=== PATIENT | female | born 1995 | race Hispanic/Latino ===

== ENCOUNTER 2016-12-12 18:54 | Emergency (ER) | payer OTHER, BC ==
[2016-12-12 19:05] VITALS: BP 141/73; PULSE 92; RESP 16; TEMP 98; O2SAT 100
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
--- NOTE | 2016-12-13 10:43 | RAD ---
PROCEDURE: Cervical Spine Radiographs. HISTORY: Pain. COMPARISON: None. FINDINGS: BONES: Alignment maintained. No fracture. Nondiagnostic assessment of C1-C2 relationship. DISC SPACES: Normal. SOFT TISSUES: Normal. No prevertebral soft tissue swelling. OTHER FINDINGS: None. IMPRESSION: No acute findings related to/accounting for the clinical presentation.
== END 2016-12-12 20:06 | disposition home or self-care (01) ==
LOC: H.ER 18:54
DX: M54.2 Cervicalgia (principal); V43.62XA Car passenger injured in collision with other type car in traffic accident, initial encounter; Y92.410 Unspecified street and highway as the place of occurrence of the external cause